=== PATIENT | female | born 1980 | race Caucasian/White ===

== ENCOUNTER 2024-02-22 20:25 | Emergency (ER) | payer OTHER, SELFPAY ==
[2024-02-22 20:36] VITALS: BP 131/82; PULSE 76; RESP 20; TEMP 36.4; O2SAT 97; BMI 33.5
--- NOTE | 2024-02-22 20:43 | CRLHL7_ITS ---
For Patients: As a result of the Cures Act, medical imaging exams and procedure reports are released immediately into your electronic medical record. You may view this report before your referring provider. If you have questions, please contact your health care provider. INDICATION: Cough. TECHNIQUE: Chest 2 views. COMPARISON: None. FINDINGS: Cardiovascular and mediastinum: Heart size and vasculature are normal in caliber and appearance. Lungs and pleural spaces: Mild peribronchial cuffing. No sign of infiltrate or mass. No sign of pleural effusion. No pneumothorax. Bones and soft tissues: No significant findings. IMPRESSION: Mild peribronchial cuffing which can be seen in reactive airway disease or viral pneumonia. No focal consolidations. Dictated by Phoenix Valdivia MD @ 02/22/2024 8:55:02 PM (Electronically Signed)
--- NOTE | 2024-02-22 20:51 | ED.GENADULT ---
HPI - General Adult General Date Seen: 02/22/24 Chief complaint: Cough Stated complaint: possible pneumonia Time Seen by Provider: 02/22/24 20:26 Source: patient Mode of arrival: ambulatory Limitations: no limitations History of Present Illness HPI narrative: Patient is a 44-year-old woman, generally healthy, who has had cough and cold symptoms for week. She said it started with a sore throat, headache, congestion etcetera but the cough is really the main issue now. Her college age daughter was just home, had also had a cough and said that she was diagnosed with pneumonia, so patient decided to come get checked out make sure that she did not also have pneumonia. She has not had fevers or shortness of breath, her chest does feel rattley and congested. Related Data Home Medications ?Medication ?Instructions ?Recorded ?Confirmed lisinopril .ROUTE 02/22/24 sertraline .ROUTE 02/22/24 Previous Rx's ?Medication ?Instructions ?Recorded codeine 10 mg-guaifenesin 100 mg/5 5 ml PO Q6H PRN #120 mL 02/22/24 mL oral liquid (Guaifenesin AC) Allergies Allergy/AdvReac Type Severity Reaction Status Date / Time No Known Drug Allergies Allergy Verified 02/22/24 20:36 Review of Systems Status of ROS: Reports: 6 or more systems reviewed and unremarkable except as noted in History and below PFSH FOR[facility]LY [facility] Social History Smoking Status: Never smoker How often do you have a drink containing alcohol: 2-3 times a week AUDIT-C Alcohol total score: 3 Non-prescribed substance use: denies use Exam Narrative: Exam Narrative: Vital signs reviewed General, alert, well-appearing woman, breathing easily. Head: Normocephalic, atraumatic. ENT: A little nasal congestion, throat normal. Neck: Supple without adenopathy. Heart: Regular rate and rhythm without murmur. Lungs: Scattered crackles and wheezes, right greater than left. No increased work of breathing. Skin: Warm dry well perfused. Const: Vital Signs, click to edit/add: Vital Signs - 24 hr 02/22/24 20:36 Temperature 97.6 F Pulse Rate [Pulse Oximeter] 76 Respiratory Rate 20 Blood Pressure [Ri ght Upper Arm] 131/82 Pulse Oximetry 97 Oxygen Delivery Me thod Room Air Documenting provider has reviewed patient's vital signs: yes Course Course ED Course: Some evidence of bronchospasm on exam, will given Arturo here, chest x-ray to evaluate for infiltrate, I do not hear any focal crackles although she does have scattered crackles in both lung carter. Nontoxic in appearance, normal O2 sats. X-ray read by my review is of no focal consolidation. Radiology report as follows:Patient: Kiya Tolbert MR#: [id number] : 1980 Acct:[id number] Loc: ED Service Date: 02/22/[address]: Ordering Physician: Christine Angulo M.D. Date of Service: 02/22/24 Procedure(s): XR chest 2V Accession Number(s): [id number] cc: Christine Angulo M.D.~ For Patients: As a result of the Cures Act, medical imaging exams and procedure reports are released immediately into your electronic medical record. You may view this report before your referring provider. If you have questions, please contact your health care provider. INDICATION: Cough. TECHNIQUE: Chest 2 views. COMPARISON: None. FINDINGS: Cardiovascular and mediastinum: Heart size and vasculature are normal in caliber and appearance. Lungs and pleural spaces: Mild peribronchial cuffing. No sign of infiltrate or mass. No sign of pleural effusion. No pneumothorax. Bones and soft tissues: No significant findings. IMPRESSION: Mild peribronchial cuffing which can be seen in reactive airway disease or viral pneumonia. No focal consolidations. Dictated by Phoenix Valdivia MD @ 02/22/2024 8:55:02 PM I recommended a course of prednisone, inhalers. She would like to try the coding cough service all prescribed that for her as well. Return for worsening, severe respiratory symptoms, high fevers, shaking chills, vomiting etcetera. Primary care follow-up if not improving over the next week or so. Vital Signs Vital signs: Initial Vital Signs Temperature 97.6 F 02/22/24 20:36 Temperature Source Temporal Artery Scan 02/22/24 20:36 Pulse Rate 76 02/22/24 20:36 Respiratory Rate 20 02/22/24 20:36 Blood Pressure 131/82 02/22/24 20:36 Blood Pressure Mean 98 02/22/24 20:36 Blood Pressure Position Sitting 02/22/24 20:36 Pulse Oximetry 97 02/22/24 20:36 Oxygen Delivery Method Room Air 02/22/24 20:36 Vital Signs Temperature 97.6 F 02/22/24 20:36 Pulse Rate 76 02/22/24 20:36 Respiratory Rate 20 02/22/24 20:36 Blood Pressure 131/82 02/22/24 20:36 Pulse Oximetry 97 02/22/24 20:36 Oxygen Delivery Method Room Air 02/22/24 20:36 Temperature 97.6 F 02/22/24 20:36 Pulse Rate 76 02/22/24 20:36 Respiratory Rate 20 02/22/24 20:36 Blood Pressure 131/82 02/22/24 20:36 Pulse Oximetry 97 02/22/24 20:36 Oxygen Delivery Method Room Air 02/22/24 20:36 Medications Administered Medications: Discontinued Medications Generic Name Dose Route Start Last Admin Trade Name Freq PRN Reason Stop Dose Admin Albuterol/Ipratropium 1 neb 02/22/24 20:43 02/22/24 21:04 Iprat-Albut 0.5-2.5 Mg/3 Ml Neb IH 02/22/24 20:44 1 neb ONCE ONE Administration Discharge Plan Discharge Clinical Impression: Bronchitis Patient Disposition: Home, Self-Care Condition: Stable Instructions: Acute Bronchitis (ED) Additional Instructions: Your chest x-ray does not show evidence of a pneumonia tonight. Your exam is suggestive of bronchitis, which is a viral process. Antibiotics are typically not helpful. We use a combination of steroids and inhalers to help minimize wheezing and coughing. For increasing shortness of breath, high fevers, shaking chills, vomiting or other worsening, return any time. Otherwise, see her primary doctor if you are not gradually improving over the next week or so. Prescriptions: New codeine-guaifenesin [Guaifenesin AC] 10-100 mg/5 mL liquid 5 ml PO Q6H PRNQty: 120 0RF No Action lisinopril .ROUTE sertraline .ROUTE Stand Alone Forms: [facility] Info Instructions
[2024-02-22] MEDS: IPRAT-ALBUT 0.5-2.5 MG/3 ML NEB 1 NEB IH (21:04)
== END 2024-02-22 21:29 | disposition home or self-care (01) ==
LOC: ED 21:18
PROVIDERS: Emergency Provider Emergency Medicine
DX: J40 Bronchitis, not specified as acute or chronic (principal)
CPT/HCPCS: 71046; 99283; 99284